=== PATIENT | male | born 1965 | race Asian ===

== ENCOUNTER 2022-02-24 05:23 | Emergency (ER) | payer OTHER ==
[~2022-02-24] VITALS: Ht 185.4 cm; Wt 131.2 kg
[2022-02-24 05:49] VITALS: BP 157/108
== END 2022-02-24 08:04 | disposition home or self-care (01) ==
LOC: ER 05:23
DX: Z53.21 Procedure and treatment not carried out due to patient leaving prior to being seen by health care provider (principal)
CPT/HCPCS: 99281